=== PATIENT | male | born 1980 | race Caucasian/White ===

== ENCOUNTER 2019-05-11 07:49 | Day surgery (SDC) | payer BC, OTHER ==
[2019-05-05 16:30] VITALS: BMI 44.9
[2019-05-11] MEDS ORDERED: PROPOFOL 20 ML ONE ×2 (07:52)
[2019-05-11] MEDS ORDERED: LIDOCAINE HCL/PF 2% SDV 5ML VIAL ONE (07:52)
[2019-05-11 08:08] VITALS: TEMP 98.7
[2019-05-11 09:22] VITALS: BP 115/65; PULSE 69
--- NOTE | 2019-05-13 14:58 | PATH ---
Surgical Pathology Report Patient Name: CHIVO MEDEIROS [facility]. Rec. #: [id number] /Age/Gender: 1980 (Age: 38) / M Account: [id number] Location: [facility] AMBULATORY Taken: 05/11/2019 Received: 05/11/2019 Reported: 05/13/2019 Physicians: Prashanth Jones M.D. Specimen(s) Received A: SIGMOID INFLAMMATION B: POLYP RECTOSIGMOID COLON X2 C: POLYP RECTUM X2 Clinical History Diverticulitis Postoperative diagnosis: Polyps, history of diverticulitis, diverticulosis, segmental colitis Final Diagnosis A. SIGMOID, INFLAMMATION, BIOPSY: COLONIC MUCOSA SHOWING MILD SURFACE HYPERPLASTIC CHANGE. B. RECTOSIGMOID, POLYP (X2), BIOPSY: SESSILE SERRATED POLYP. C. RECTUM, POLYP (X2), BIOPSY: SESSILE SERRATED POLYP. Electronically Signed Theresa Cooney M.D. Gross Description A. Received in formalin, labeled "biopsy sigmoid inflammation" are 2 [place]itting[place], irregular portions of soft tissue measuring 0.2 and 0.3 cm. in greatest dimension. The specimens are submitted in toto in one cassette. B. Received in formalin, labeled "biopsy polyp rectosigmoid" is a whittington, irregular portion of soft tissue measuring 0.4 cm. in greatest dimension. The specimen is submitted in toto in one cassette. C. Received in formalin, labeled "biopsy polyp rectum x2" are 4 whitting[place], irregular portions of soft tissue ranging from 0.1-0.2 cm. in greatest dimension. The specimens are submitted in toto in one cassette. 05/12/2019 [facility]05/12/2019
== END 2019-05-11 09:15 | disposition home or self-care (01) ==
LOC: FASU 07:49
PROVIDERS: ATTEND Internal Medicine Gastroenterology
PROC: 0DBN8ZX Excision of Sigmoid Colon, Via Natural or Artificial Opening Endoscopic, Diagnostic (ICD-10-PCS; 2019-05-11)
PROC: 0DBN8ZX Excision of Sigmoid Colon, Via Natural or Artificial Opening Endoscopic, Diagnostic (ICD-10-PCS; 2019-05-11)
PROC: 0DBP8ZX Excision of Rectum, Via Natural or Artificial Opening Endoscopic, Diagnostic (ICD-10-PCS; principal; 2019-05-11 08:17)
DX: D12.7 Benign neoplasm of rectosigmoid junction (principal); K62.1 Rectal polyp; K63.89 Other specified diseases of intestine; K57.30 Diverticulosis of large intestine without perforation or abscess without bleeding; R10.32 Left lower quadrant pain; R19.4 Change in bowel habit
CPT/HCPCS: 88305-TC

== ENCOUNTER 2019-08-28 05:08 | Emergency (ER) | payer OTHER ==
[2019-08-28 05:21] VITALS: TEMP 97.7; BMI 45.0
--- NOTE | 2019-08-28 05:39 | PDOC ---
History of Present Illness - General Chief Complaint: Shortness of Breath Stated Complaint: CAN'T TAKE A DEEP BREATH Time Seen by Provider: 08/28/19 05:33 History Source: Patient Exam Limitations: No Limitations - History of Present Illness Initial Comments: 08/28/19 05:39 This is a 38-year-old male who comes in complaining of difficulty breathing. Patient is morbidly obese. Patient said that at night he has a hard time falling asleep and last night that he had a pressure discomfort sensation in his chest. Patient denies any shortness of breath but said he feels like it is hard to take a deep breath. Patient denies any pain when he takes a deep breath. Patient denies any cough, congestion, fever, chills. Patient denies history of similar symptoms in the past. Allergies: as per nursing notes Past Medical History: none Social history: Lives with family. No smoking. No alcohol. No illicit drugs. Surgical history: None General: No fevers or chills, no weakness, no weight loss HEENT: No change in vision. No sore throat,. No ear pain CardioVascular: no chest discomfort. No shortness of breath Respiratory:No cough, or wheezing. Gastrointestinal: no nausea, vomiting, diarrhea or constipation, No rectal bleeding Genitourinary: No dysuria, hematuria, or frequency Musculoskeletal: No joint or muscle pain or swelling Neurologic: No headache, vertigo, dizziness or loss of consciousness Psychiatric: nor depression Skin: No rashes or easy bruising Endocrine: no increased thirst or abnormal weight change Allergic: no skin or latex allergy All other systems reviewed and normal Exam: General: Well-nourished well-developed individual, no acute distress HEENT: Throat: Normal, tonsils normal, no erythema or exudate Neck: Supple, no meningeal signs, no lymphadenopathy Eyes::Pupils equal reactive and round, extraocular motion intact Chest: Nontender to palpation Cardiac: S1-S2 normal, regular rate and rhythm, no murmurs rubs or gallops Respiratory: Lungs clear to auscultation bilateral Abdomen: Soft, nondistended, normal bowel sounds, there is no tenderness on palpation diffusely Extremities: Warm, dry, no cyanosis, clubbing, or edema Skin: No rashes Neuro: Alert and oriented x3, CN II - XII intact, nonfocal exam with normal strength, normal sensation, normal reflexes, normal gait, Psych: Normal mood and affect 08/28/19 06:54 Assessment and plan: This is a 38-year-old male who comes in complaining of shortness of breath. And some chest discomfort. Work-up initiated including CBC, comp, EKG, chest x-ray, cardiac enzymes, BNP, d-dimer. Care of this patient transferred to Dr. Hadley at 7 AM Case discussed in detail with oncoming Emergency Physician including history, physical exam and ancillary studies. Oncoming Emergency Physician has assumed care for the patient and will complete the evaluation and treatment. Patient is aware of the plan. Pt is clinically unchanged and stable. Past History - Past Medical History Allergies/Adverse Reactions: Allergies Allergy/AdvReac Type Severity Reaction Status Date / Time Penicillins Allergy Unknown Verified 05/05/19 16:22 Home Medications: Ambulatory Orders NK [No Known Home Medication] 05/05/19 Anemia: No Asthma: No Cancer: No Cardiac Disorders: No CVA: No COPD: No CHF: No Dementia: No Diabetes: No GI Disorders: Yes (DIVERTICULITIS 02/2019) Disorders: No HTN: No Hypercholesterolemia: No Liver Disease: No Seizures: No Thyroid Disease: No - Surgical History Abdominal Surgery: No Appendectomy: Yes Cardiac Surgery: No Cholecystectomy: No Lung Surgery: No Neurologic Surgery: No Orthopedic Surgery: No - Psycho Social/Smoking Cessation Hx Smoking History: Never smoked Have you smoked in the past 12 months: No Hx Alcohol Use: No Drug/Substance Use Hx: Yes (OCC. MARIJUANA) Substance Use Type: Marijuana *Physical Exam - Vital Signs Last Vital Signs Temp Pulse Resp BP Pulse Ox 97.7 F 60 16 131/91 99 08/28/19 05:09 08/28/19 05:09 08/28/19 05:09 08/28/19 05:09 08/28/19 05:09 ED Treatment Course - LABORATORY CBC & Chemistry Diagram: 08/28/19 05:45 08/28/19 05:45 Discharge - Discharge Information Problems reviewed: Yes Clinical Impression/Diagnosis: Breathing difficulty Condition: Stable - Follow up/Referral - Patient Discharge Instructions - Post Discharge Activity
--- NOTE | 2019-08-28 07:22 | PDOC ---
*Physical Exam - Vital Signs Last Vital Signs Temp Pulse Resp BP Pulse Ox 97.7 F 60 16 131/91 99 08/28/19 05:09 08/28/19 05:09 08/28/19 05:09 08/28/19 05:09 08/28/19 05:09 ED Treatment Course - LABORATORY CBC & Chemistry Diagram: 08/28/19 05:45 08/28/19 05:45 Medical Decision Making - Medical Decision Making 08/28/19 07:42 Patient signed out to me by Dr. Scott at 7am shift change. Presented with SOB. Labs pending. CXR no focal consolidation. 08/28/19 08:45 Labs all wnl. D-dimer negative, BNP negative, trop negative. Stable for DC home. Pt sttes he will call his primary for f/u this week. Discharge - Discharge Information Problems reviewed: Yes Clinical Impression/Diagnosis: Breathing difficulty Condition: Stable Disposition: HOME - Admission No - Follow up/Referral - Patient Discharge Instructions Patient Printed Discharge Instructions: DI for Shortness of Breath - Post Discharge Activity
[2019-08-28 07:30] LABS: N-TERMINAL BNP 26.1 pg/ml (5-125)
[2019-08-28 07:57] LABS: RBC 5.21 M/mm3 (4.00-5.60); WHITE BLOOD COUNT 11.9 K/mm3 (4.0-10.0)
[2019-08-28 07:58] LABS: HEMATOCRIT 44.5 % (35.4-49); HEMOGLOBIN 15.3 GM/dL (11.7-16.9); MCH 29.3 pg (25.7-33.7); MCHC 34.3 g/dl (32.0-35.9); MEAN CELL VOLUME 85.5 fl (80-96); MEAN PLT VOLUME 8.5 fl (7.5-11.1); NEUT % 45.7 % (42.8-82.8); PLATELET COUNT 269 K/MM3 (134-434); RDW 13.6 % (11.9-15.9)
[2019-08-28 07:59] LABS: BASO % 0.3 % (0-2.0); LYMPH % 44.6 % (8-40); MONO % 7.4 % (3.8-10.2)
[2019-08-28 08:14] LABS: BLOOD UREA NITROGEN 19.6 mg/dL (7-18); CALCIUM 9.2 mg/dL (8.5-10.1); CREATININE 0.8 mg/dL (0.55-1.3); POTASSIUM 3.9 mmol/L (3.5-5.1)
[2019-08-28 08:15] LABS: ALBUMIN 4.2 g/dl (3.4-5.0); BILIRUBIN,TOTAL 0.4 mg/dL (0.2-1); TOT PROT 6.8 g/dl (6.4-8.2)
[2019-08-28 08:50] VITALS: BP 126/77; PULSE 59
--- NOTE | 2019-08-29 10:06 | EKG ---
Test Reason : Blood Pressure : / mmHG Vent. Rate : 059 BPM Atrial Rate : 059 BPM P-R Int : 152 ms QRS Dur : 120 ms QT Int : 442 ms P-R-T Axes : 022 022 020 degrees QTc Int : 437 ms SINUS BRADYCARDIA WITH SINUS ARRHYTHMIA NON-SPECIFIC INTRA-VENTRICULAR CONDUCTION DELAY BORDERLINE ECG WHEN COMPARED WITH ECG OF 07-SEP-2008 10:46, NO SIGNIFICANT CHANGE WAS FOUND Confirmed by Chandni Iraheta ([id number]) on 08/29/2019 10:06:39 AM Referred By: MD KULKARNI Confirmed By:Chandin Iraheta
== END 2019-08-28 08:49 | disposition home or self-care (01) ==
LOC: FER 05:08
DX: R06.00 Dyspnea, unspecified (principal); E66.01 Morbid (severe) obesity due to excess calories; Z88.0 Allergy status to penicillin; K92.9 Disease of digestive system, unspecified
CPT/HCPCS: 36415; 71046-TC-FY; 80053; 82550; 83880; 84484; 85025; 85379; 93005; 99285-25

== ENCOUNTER 2020-03-18 07:58 | Emergency (ER) | payer OTHER ==
[2020-03-18 08:03] VITALS: PULSE 60; BMI 46.1
[2020-03-18] MEDS ORDERED: METOCLOPRAMIDE HCL 10 MG TABLET (FP) PO ONE ×2 (08:15→08:22)
[2020-03-18] MEDS ORDERED: MAG HYDROX/AL HYDROX/SIMETH 30 ML UNIT-DOSE CUP PO ONE (08:15)
[2020-03-18] MEDS ORDERED: FAMOTIDINE 20 MG TABLET PO ONE (08:15)
[2020-03-18] MEDS ORDERED: SIMETHICONE 80 MG TAB.CHEW (FP) PO STA (08:16)
--- NOTE | 2020-03-18 08:21 | PDOC ---
History of Present Illness - General Chief Complaint: Colic Stated Complaint: i feel bloating, burping Time Seen by Provider: 03/18/20 08:00 - History of Present Illness Initial Comments: 03/18/20 08:17 39 M with h/o obesity presents to ED with abdominal bloating and difficulty breathing. Pt states that he has been very gassy all night. Ate sushi last night and began to feel bloated, so he took baking soda at approx 11pm. Since then, he reports feeling distended and passing a lot of gas. Pt notes burping frequently. This is accompanied by a sensation of being unable to draw in a breath fully. Pt denies any chest pain or shortness of breath. However, he states that when he draws in a deep breath, it is limited by his abdominal bloating. Pt denies N/V/D. Denies abdominal pain. Pt was seen here 08/2019 for similar presentation. Had negative cardiac and PE work up. Past History - Medical History Allergies/Adverse Reactions: Allergies Allergy/AdvReac Type Severity Reaction Status Date / Time Penicillins Allergy Unknown Verified 03/18/20 08:01 Home Medications: Ambulatory Orders Cetirizine HCl [Zyrtec] 10 mg PO DAILY 03/18/20 Anemia: No Asthma: No Cancer: No Cardiac Disorders: No CVA: No COPD: No CHF: No Dementia: No Diabetes: No GI Disorders: Yes (DIVERTICULITIS 02/2019) Disorders: No HTN: No Hypercholesterolemia: No Liver Disease: No Seizures: No Thyroid Disease: No - Surgical History Abdominal Surgery: No Appendectomy: Yes Cardiac Surgery: No Cholecystectomy: No Lung Surgery: No Neurologic Surgery: No Orthopedic Surgery: No - Psycho-Social/Smoking History Smoking History: Never smoked Have you smoked in the past 12 months: No - Substance Abuse Hx (Audit-C & DAST Scrn) How often the patient has a drink containing alcohol: Never Score: In Men: 4 or > Positive; In Women: 3 or > Positive: 0 Screen Result (Pos requires Nsg. Audit-10AR): Negative In the last yr the pt used illegal drug/Rx for NonMed reason: Yes Score: Yes response is considered Positive: 1 Screen Result (Positive result requires Nsg. DAST-10): Positive Review of Systems - Review of Systems Comments:: 03/18/20 08:19 "GENERAL/CONSTITUTIONAL: No fever or chills. No weakness. HEAD, EYES, EARS, NOSE AND THROAT: No change in vision. No ear pain or discharge. No sore throat. CARDIOVASCULAR: + difficulty breathing, No chest pain, no shortness of breath, no loss of consciousness RESPIRATORY: No cough, wheezing, or hemoptysis. GASTROINTESTINAL: + bloating, no pain, No nausea, vomiting, diarrhea or constipation. GENITOURINARY: No dysuria, frequency, or change in urination. MUSCULOSKELETAL: No joint or muscle swelling or pain. No neck or back pain. SKIN: No rash NEUROLOGIC: No vertigo, no change in strength/sensation. ENDOCRINE: No increased thirst. No abnormal weight change. HEMATOLOGIC/LYMPHATIC: No anemia, easy bleeding, or history of blood clots. ALLERGIC/IMMUNOLOGIC: No hives or skin allergy. *Physical Exam - Vital Signs Last Vital Signs Temp Pulse Resp BP Pulse Ox 97.9 F 60 17 135/89 100 03/18/20 08:00 03/18/20 08:00 03/18/20 08:00 03/18/20 08:00 03/18/20 08:00 - Physical Exam 03/18/20 08:20 "GENERAL: Awake, alert, and fully oriented, in no acute distress. HEAD: No signs of trauma EYES: PERRLA, EOMI, sclera anicteric, conjunctiva clear ENT: Auricles normal inspection, hearing grossly normal, nares patent, oropharynx clear without exudates. Moist mucosa NECK: Nontender, no stepoffs, Normal ROM, supple, no lymphadenopathy, JVD, or masses LUNGS: Breath sounds equal, clear to auscultation bilaterally. No wheezes, and no crackles HEART: Regular rate and rhythm, normal S1 and S2, no murmurs, rubs or gallops ABDOMEN: Soft, nontender, normoactive bowel sounds. No guarding, no rebound. No masses EXTREMITIES: Normal range of motion, no edema. No clubbing or cyanosis. No cords, erythema, or tenderness NEUROLOGICAL: Cranial nerves II through XII intact. 5/5 strength and sensation in all extremities, Normal speech, normal gait, normal cerebellar function SKIN: Warm, Dry, normal turgor, no rashes or lesions noted. Heart Score/ECG Review - History History: Slightly suspicious - Electrocardiogram EKG: Normal - Age Age: </= 45 - Risk Factors Risk Factors Heart Score: Yes Hx Obesity Based on the list above the patient has:: 1-2 risk factors - Troponin Troponin: </= normal limit - Score Heart Score - Total: 1 - ECG Impressions Comment:: 03/18/20 08:54 NSR, no DC/STDs, no TWIs, axis wnl, intervals wnl, rate 56 ED Treatment Course - LABORATORY CBC & Chemistry Diagram: 03/18/20 08:32 03/18/20 08:20 - RADIOLOGY Radiology Studies Ordered: Category Date Time Status ABDOMEN-KUB FLAT PLATE [RAD] Stat Radiology 03/18/20 08:15 Ordered CHEST PA & LAT [RAD] Stat Radiology 03/18/20 08:15 Ordered Medical Decision Making - Medical Decision Making 03/18/20 08:20 39 M with abdominal bloating and difficulty drawing in a deep breath. Pt with normal vitals, no clinical evidence of DVT/PE. PERC score 0. Suspect that symptoms are GI in nature, likely indigestion. - Labs - EKG - XR chest/abdomen - GI cocktail 03/18/20 09:25 XR shows dilated loops of small bowel Pt reports h/o prior appendectomy Will obtain CT to r/o SBO 03/18/20 12:07 CT without evidence of SBO Pt reassessed - bloating slightly improved with meds Tolerating PO without issue Pt is well appearing, with normal vitals. Clinically stable for DC at this time. I discussed the physical exam findings, ancillary test results and final diagnoses with the patient. I answered all of the patient's questions. The patient was satisfied with the care received and felt comfortable with the discharge plan and treatment plan. The patient agrees to follow up with the primary care physician within 24-72 hours. Discharge - Discharge Information Problems reviewed: Yes Clinical Impression/Diagnosis: Nausea, Abdominal distension, gaseous Condition: Stable Disposition: HOME - Follow up/Referral Referrals: Spencer Zacarias MD [Primary Care Provider] - Uriel Modi MD [Staff Physician] - - Patient Discharge Instructions Patient Printed Discharge Instructions: DI for Abdominal Pain-Adult Additional Instructions: Please follow up with a cloth painter for further evaluation of your abdominal bloating. Call the number provided to make an appointment. If you experience worsening bloating, abdominal pain, chest pain, shortness of breath, or any other concerning symptoms, return to the ER immediately. - Post Discharge Activity
[2020-03-18] MEDS ORDERED: MAG HYDROX/AL HYDROX/SIMETH 30 ML UNIT-DOSE CUP ONE (08:22)
[2020-03-18] MEDS ORDERED: FAMOTIDINE 20 MG TABLET ONE (08:22)
[2020-03-18] MEDS ORDERED: SIMETHICONE 80 MG TAB.CHEW (FP) ONE (08:22)
[2020-03-18 08:43] LABS: BASO % 1.7 % (0-2.0); EOS % 1.9 % (0-4.5); HEMATOCRIT 42.3 % (35.4-49); HEMOGLOBIN 14.9 GM/dl (11.7-16.9); LYMPH % 42.8 % (8-40); MCH 30.8 pg (25.7-33.7); MCHC 35.1 g/dl (32.0-35.9); MEAN CELL VOLUME 87.6 fl (80-96); MONO % 6.7 % (3.8-10.2); NEUT % 46.9 % (42.8-82.8); PLATELET COUNT 254 K/MM3 (134-434); RBC 4.83 M/mm3 (4.00-5.60); RDW 12.3 % (11.9-15.9); WHITE BLOOD COUNT 7.4 K/mm3 (4.0-10.8)
[2020-03-18 09:14] LABS: BILIRUBIN,TOTAL 0.7 mg/dl (0.2-1); CALCIUM 8.9 mg/dl (8.5-10); CREATININE 0.9 mg/dl (0.55-1.3); POTASSIUM 3.7 mmol/L (3.5-5.1); TOT PROT 6.1 g/dl (6.4-8.2)
[2020-03-18 12:20] VITALS: BP 124/78; TEMP 97.7
--- NOTE | 2020-03-19 11:41 | EKG ---
Test Reason : Blood Pressure : / mmHG Vent. Rate : 056 BPM Atrial Rate : 056 BPM P-R Int : 150 ms QRS Dur : 108 ms QT Int : 440 ms P-R-T Axes : 017 010 011 degrees QTc Int : 424 ms SINUS BRADYCARDIA OTHERWISE NORMAL ECG WHEN COMPARED WITH ECG OF 28-AUG-2019 06:42, NO SIGNIFICANT CHANGE WAS FOUND Confirmed by CHEL ANGEL MD ([id number]) on 03/19/2020 11:41:17 AM Referred By: KAREL CORNEJO Confirmed By:CHEL ANGEL MD
== END 2020-03-18 12:20 | disposition home or self-care (01) ==
LOC: FER 07:58
DX: R11.0 Nausea (principal); R14.0 Abdominal distension (gaseous)
CPT/HCPCS: 36415; 71046-TC-FY; 74018-TC-FY; 74176-TC; 80053; 82550; 82553; 83690; 84484; 85025; 93005; 99285-25

== ENCOUNTER 2020-05-22 09:19 | Emergency (ER) | payer OTHER ==
[2020-05-22 09:44] VITALS: BP 139/87; PULSE 65; TEMP 97.5; BMI 44.1
[2020-05-22] MEDS ORDERED: LACTATED RINGERS SOLUTION 1,000 ML/1,000 ML INFUS.BAG IV ONE (10:08)
[2020-05-22 10:57] LABS: BASO % 0.4 % (0-2.0); EOS % 1.2 % (0-4.5); HEMATOCRIT 46.2 % (35.4-49); HEMOGLOBIN 15.8 GM/dl (11.7-16.9); LYMPH % 39.3 % (8-40); MCH 30.4 pg (25.7-33.7); MCHC 34.2 g/dl (32.0-35.9); MEAN CELL VOLUME 88.9 fl (80-96); MEAN PLT VOLUME 8.5 fl (7.5-11.1); MONO % 6.3 % (3.8-10.2); NEUT % 52.8 % (42.8-82.8); PLATELET COUNT 276 K/MM3 (134-434); RDW 12.3 % (11.9-15.9); WHITE BLOOD COUNT 7.9 K/mm3 (4.0-10.8)
[2020-05-22 11:03] LABS: ALBUMIN 4.3 g/dl (3.4-5.0); BILIRUBIN,TOTAL 0.4 mg/dl (0.2-1); CALCIUM 8.9 mg/dl (8.5-10); CREATININE 0.9 mg/dl (0.55-1.3); POTASSIUM 3.7 mmol/L (3.5-5.1); TOT PROT 6.7 g/dl (6.4-8.2)
== END 2020-05-22 12:06 | disposition home or self-care (01) ==
LOC: FER 09:19
PROC: 3E0337Z Introduction of Electrolytic and Water Balance Substance into Peripheral Vein, Percutaneous Approach (ICD-10-PCS; principal; 2020-05-22)
DX: R10.9 Unspecified abdominal pain (principal); K52.82 Eosinophilic colitis
CPT/HCPCS: 36415; 80053; 83690; 83735; 85025; 99284-25; C9803; U0003